=== PATIENT | female | born 1955 | race Caucasian/White ===

== ENCOUNTER → 2017-02-16 | Day surgery (SDC) | payer MEDICARE, BC ==
[~2017-02-16] MED LIST: ACETAMINOPHEN 1000 MG/100 ML 100 ML IV ONE; BUPIVACAINE/EPINEPHRINE 0.25% 50 ML VIAL ONE; LACTATED RINGER'S 1000 ML INJ 1,000 ML ONE; LIDOCAINE 2%/EPINEPHrine PF 1:200,000 20ML SDV ONE; MIDAZOLAM HCL 2 MG/2 ML VIAL ONE; NEOMYCIN/POLYMYXIN/BACITRACIN OINT 15 GM TUBE ONE; ONDANSETRON HCL 4 MG/2 ML VIAL IV PUSH ONE; PROPOFOL 200 MG/20 ML AMP IV ONE; ceFAZolin INJ 1,000 MG VIAL ONE
--- NOTE | 2017-02-16 08:53 | TN ---
cc: OREN DALE M.D. DATE OF SURGERY: 02/16/2017 PREOPERATIVE DIAGNOSIS Biopsy of basal cell carcinoma, right nasal tip. POSTOPERATIVE DIAGNOSIS Biopsy of basal cell carcinoma, right nasal tip. PROCEDURE Wide local excision, frozen section which was negative, resulting in a primary defect of 1.5 cm diameter. This required a bilobed flap reconstruction for a second defect of 3 x 1.5 cm. SURGEON Oren Dale MD, FACS. ANESTHESIA LMA general, plus a total of 8 cc of 1% lidocaine with epinephrine. ESTIMATED BLOOD LOSS Minimal. COMPLICATIONS None. DETAILS OF PROCEDURE She was properly consented, marked and anesthetized. The skin was sterilized with Microcyn and sterile draping applied. Excision was carried out of this lesion and sent to pathology for frozen section which indeed failed to demonstrate any further pathology. The bilobed flap as a fasciocutaneous was elevated and rotated into the defect and inset utilizing 5-0 Monocryl suture and 5-0 fast-absorbing gut. The total of the reconstruction was 6cm. Absorbent dressing was applied. Good viability of tissue was noted at the end of the case. The patient was awakened, extubated in the operating room and transferred back to the post-anesthesia care unit in stable condition. No complications were appreciated. The patient tolerated the procedure fairly well. MD MARAL Garrett/JIGNA /8:34 AM /8:47 AM [facility]
== END | disposition home or self-care (01) ==
LOC: ESDC 06:15
PROVIDERS: ATTEND Plastic Surgery
DX: C44.311 Basal cell carcinoma of skin of nose (principal)
CPT/HCPCS: 00300; 11642; 15732; 88305; 88331; J0131; J0690; J2250; J2405; J3010; J7120